=== PATIENT | female | born 1950 | race Caucasian/White ===

== ENCOUNTER → 2019-12-26 | Outpatient (CLI) | payer BC ==
[2019-12-26 10:26] LABS: Basophils % (A) 1 %; Eosinophils # (A) 0.1 k/uL (0-0.7); Eosinophils % (A) 2 %; HCT 43.6 % (34.0-46.0); HGB 13.7 gm/dL (11.4-16.0); Lymphocytes # (A) 1.2 k/uL (1.0-4.8); Lymphocytes % (A) 28 %; MCH 28.9 pg (25.0-35.0); MCHC 31.5 g/dL (31.0-37.0); MCV 91.9 fL (80.0-100.0); Mean Platelet Volume 8.8; Monocytes # (A) 0.2 k/uL (0-1.0); Monocytes % (A) 6 %; Neutrophils # (A) 2.6 k/uL (1.3-7.7); Neutrophils % (A) 62 %; Platelet Count 179 k/uL (150-450); RBC 4.75 m/uL (3.80-5.40); RDW 13.5 % (11.5-15.5); WBC 4.2 k/uL (3.8-10.6)
[2019-12-26 10:49] LABS: Potassium 4.9 mmol/L (3.5-5.1)
[2019-12-26 12:04] LABS: INR 0.9 (<1.2); Prothrombin Time 9.5 sec (9.0-12.0)
== END | disposition home or self-care (01) ==
LOC: LABPAT 08:52
PROVIDERS: ATTEND Orthopaedic Surgery
DX: Z01.818 Encounter for other preprocedural examination (principal); Z01.812 Encounter for preprocedural laboratory examination; M17.11 Unilateral primary osteoarthritis, right knee
CPT/HCPCS: 36415; 80051; 85025; 85610; 87070; 93005

== ENCOUNTER 2020-01-16 08:19 | Day surgery (SDC) | payer BC ==
--- NOTE | 2020-01-15 13:23 | HP ---
HISTORY AND PHYSICAL REASON FOR ADMISSION: Surgery 01/16/2020 HISTORY OF PRESENT ILLNESS: Ghazal Kuar is a 69-year-old patient seen with progressive right knee pain. We discussed options for treatment. She elected to proceed with right total knee arthroplasty. Consent regarding procedure was obtained. PAST MEDICAL HISTORY: Noncontributory. SURGICAL HISTORY: Right knee arthroscopy. MEDICATIONS: Vitamins. ALLERGIES: None. SOCIAL HISTORY: She denies tobacco use. PHYSICAL EXAMINATION: Evaluation of the right knee. Her range of motion is -2 to 130. Tenderness medial joint line. Crepitus medial patellofemoral compartments. Pain with patellofemoral compression. Ligaments stable. Hip rotation without pain. Distal neurovascular exam is intact. RADIOGRAPHS: Radiographs reveal severe osteoarthritic changes. IMPRESSION: Right knee osteoarthritis. PLAN: Right total knee arthroplasty. MMODL / IJN: [id number] /
[~2020-01-16 08:19] MED LIST: ACETAMINOPHEN TAB 500 MG TAB PO ONE; DEXAMETHASONE SOD PHOSPHATE 10 MG/ML 1 ML VIAL IV ONE; HYDROmorphone 0.5 MG/0.5 ML SYRINGE IVP PRN; MELOXICAM 7.5 MG TAB PO ONE; MIDAZOLAM 2 MG/2 ML VIAL IV PRN; ONDANSETRON 4 MG/2 ML VIAL IVP ONE; ROPIVACAINE 246.25 MG, EPINEPHrine 0.5 MG, KETOROLAC 30 MG, cloNIDine HCL/PF 80 MCG, WA... MISCELLANE ONE; TRANEXAMIC ACID 1,000 MG in SODIUM CHLORIDE 0.9% 100 ML IVPB ONE
[2020-01-16] MEDS ORDERED: ONDANSETRON 4 MG/2 ML VIAL ONE (09:02)
[2020-01-16] MEDS ORDERED: ACETAMINOPHEN TAB 500 MG TAB ONE (09:02)
[2020-01-16] MEDS ORDERED: LIDOCAINE 1% (10MG/ML) FOR IV START INTRADERMA ONE (09:05)
[2020-01-16] MEDS: LACTATED RINGERS 1,000 ML IV SCH ×3 (09:09→20:33)
[2020-01-16] MEDS ORDERED: MIDAZOLAM 2 MG/2 ML VIAL IV ONE (09:26)
[2020-01-16] MEDS ORDERED: fentaNYL (PF) 50 MCG/ML 2 ML AMP IV ONE (09:26)
[2020-01-16] MEDS ORDERED: MIDAZOLAM 2 MG/2 ML VIAL ONE (09:50)
[2020-01-16] MEDS ORDERED: fentaNYL (PF) 50 MCG/ML 2 ML AMP ONE (09:50)
[2020-01-16] MEDS ORDERED: diphenhydrAMINE 50 MG/ML 1 ML VIAL ONE (09:50)
[2020-01-16] MEDS ORDERED: TRANEXAMIC ACID 1,000 MG/10 ML VIAL ONE (09:50)
[2020-01-16] MEDS ORDERED: PROPOFOL 10 MG/ML 20 ML VIAL IV ONE (09:50)
[2020-01-16] MEDS ORDERED: SODIUM CHLORIDE 0.9% 100 ML BAG ONE (09:50)
[2020-01-16] MEDS ORDERED: LACTATED RINGERS 1,000 ML IV ONE (10:30)
[2020-01-16] MEDS ORDERED: HYDROmorphone 0.5 MG/0.5 ML SYRINGE IVP PRN ×3 (11:44)
[2020-01-16] MEDS ORDERED: NALOXONE 0.4 MG/ML 1 ML VIAL IV PRN (11:44)
[2020-01-16] MEDS ORDERED: HYDROcodone/APAP 5-325MG 1 EACH TAB PO PRN (11:44)
[2020-01-16] MEDS ORDERED: hydrOXYzine pamoate 25 MG CAP PO PRN (11:44)
[2020-01-16] MEDS ORDERED: ONDANSETRON 4 MG/2 ML VIAL IVP PRN (11:44)
--- NOTE | 2020-01-16 11:44 | P.OP ---
Date of Procedure: 01/16/20 Preoperative Diagnosis: Right knee osteoarthritis Postoperative Diagnosis: Right knee osteoarthritis Procedure(s) Performed: Right total knee arthroplasty Implants: 1. Aesculap size 4 right narrow cemented femur 2. Aesculap size 2+ cemented tibial baseplate 3. Aesculap size T2/2+12 mm polyethylene tibial insert 4. Aesculap 3 all polyethylene cemented 3 peg patella Anesthesia: regional (Adductor canal catheter), local, spinal Surgeon: Italo Kim African Studies Professor #1: Maldonado Garcia Estimated Blood Loss (ml): 30 Pathology: other (Bone) Condition: stable Disposition: PACU Indications for Procedure: 69-year-old patient seen with symptomatic right knee osteoarthritis. After treatment options discussed, she elected to proceed with total knee arthroplasty. Operative Findings: see description of procedure Description of Procedure: Patient was taken to the operative suite after having an adductor canal catheter placed by the department of anesthesia. Patient underwent a spinal anesthetic by the department of anesthesia. Patient was given preoperative IV intake antibiotics and TXA. A well-padded tourniquet was placed about the right lower extremity. The lower extremity was then prepped and draped in the normal sterile orthopedic fashion. The extremity was elevated, a tourniquet was insufflated to 300. A standard anterior incision was made sharply through skin. Dissection was taken down through the subcutaneous soft tissues down to the extensor mechanism. A medial arthrotomy was performed, patella was everted and knee was flexed. There was advanced osteoarthritis noted. I introduced my distal intramedullary femoral drill. I then introduced the distal femoral cutting jig. Emanuel DIETZ secured the cutting jig with 2 pins. I held retractors in position while Emanuel DIETZ performed the distal femoral resection through the guide area we now removed her distal femoral cutting guide. We now placed our 4-in-1 femoral cutting block and positioned and it was secured with 2 pins by Emanuel DIETZ while I held the block in position. The distal femoral finishing was now completed. A proximal tibial cutting guide was positioned. I held the guide in the appropriate position with both hands well Emanuel DIETZ inserted stabilizing pins into the guide. Proximal tibial cut was made. We now placed a trial femoral component into position, along with an appropriate size tibial tray and insert. We now took the knee through range of motion and had full extension good flexion and good overall soft tissue balance noted. The patella was everted and stabilized with 2 towel clips held by Emanuel DIETZ while I performed a flush with patellar quad tendon utilizing a fresh sawblade. We templated the patella, appropriate drill holes were made. An appropriate trial patella was positioned, knee was taken through full range of motion with the patella tracking very nicely. The trial patella was removed. Drill holes were made through the femoral component. All trial components were removed after marking off the appropriate rotation of the tibia. Retractors were now positioned along the proximal tibia. An appropriate keel punch was made with the appropriate size tibial guide by myself on Emanuel DIETZ assisted by holding retractors. At this point appropriate size nickel free implants were chosen and opened as the patient has a history of nickel ALLERGY. The joint was irrigated copiously with pulse lavage mechanical irrigation. The posterior capsule was infiltrated with local analgesic. The wound was irrigated with p ulse lavage mechanical irrigation. We mixed antibiotic methylmethacrylate. We placed the knee into flexion. We placed multiple retractors assisted by Emanuel DIETZ to expose the proximal tibia. Once the methyl methacrylate was ready, the tibial component was cemented into place removing any excess methylmethacrylate form by both myself and Emanuel DIETZ. The femoral component was cemented into place removing the removing any excess methylmethacrylate performed by both myself and Emanuel DIETZ. We then inserted the appropriate size polyethylene tibial insert. We made sure that it was locked into position. We took the knee into full extension, and then back in a flexion making sure we had removed any excess methylmethacrylate. The patellar component was then cemented down and secured with clamp. Excess methylmethacrylate removed. We kept the knee in full extension, patellar clamp in position until methylmethacrylate had hardened. Once it had hardened the patellar clamp was removed. The knee was taken through full range of motion. The patella tracked nicely. There was good soft tissue balancing. The tourniquet was now released. Additional hemostasis was achieved via electrocautery. A second gram of TXA was given. The wound again was irrigated with pulse lavage mechanical irrigation. The superficial soft tissues were infiltrated local analgesic. The extensor mechanism was repaired with Vicryl. We checked the repair with range of motion and it was stable. The subcutaneous soft tissues were repaired with Vicryl in layers. The skin was approximated with pernio/Dermabond. Sterile dressings were applied followed by loose web roll and Edson bandage. The patient was transferred to a bed, and taken to recovery in stable and satisfactory condition. Emanuel DIETZ assisted with this complex procedure.
[2020-01-16] MEDS ORDERED: ROPIVACAINE 0.2%-NS ON-Q PUMP 1,090 MG, EMPTY PAIN BALL 1 EACH MISCELLANE PRN (12:01)
--- NOTE | 2020-01-16 12:12 | P.ANPRN ---
Procedure Note - Anesthesia - Nerve Block Performed Right Adductor Canal Infusion Time Out Performed: Yes (925) Date of Procedure: 01/16/20 Procedure Start Time: Procedure Stop Time: Location of Patient: PreOp Indication: Acute Post-Operative Pain, Requested by Surgeon Specifically requested for management of pain by DrIvone: Italo Kim Sedation Type: Sedate with meaningful contact maintained Preparation: Sterile Prep Position: Supine Catheter: Indwelling Needle Types: Pajunk Needle Gauge: 18 Ultrasound used to visualize needle placement: Yes Ultrasound used to observe medication spread: Yes Injectate: 0.5% Ropivacaine (see comment for volume) (30cc) Blood Aspirated: No Pain Paresthesia on Injection Noted: No Resistance on Injection: Normal Image Stored and Saved: Yes Events: Uneventful and Well Tolerated
--- NOTE | 2020-01-16 12:42 | XR ---
EXAMINATION TYPE: XR knee limited RT DATE OF EXAM: 01/16/2020 COMPARISON: NONE HISTORY: 69-year-old female evaluation for postoperative abnormality in alignment TECHNIQUE: 2 views FINDINGS: Images show placement of right total knee arthroplasty. Both distal femoral and proximal tibial compo nents of prosthesis are well seated without periprosthetic fracture. Alignment grossly anatomic. Ante rior soft tissue swelling with scattered soft tissue air as well as intra-articular air compatible wi th recent operation. IMPRESSION: Uncomplicated postoperative appearance right total knee arthroplasty.
[2020-01-16] MEDS ORDERED: diphenhydrAMINE 50 MG/ML 1 ML VIAL IVP STA (15:26)
[2020-01-16] MEDS: HYDROcodone/APAP 5-325MG 1 EACH TAB PO PRN (16:48)
[2020-01-16] MEDS ORDERED: SENNOSIDES-DOCUSATE SODIUM 1 EACH TAB PO SCH (21:00)
[2020-01-17 02:25] VITALS: RESP 16
[2020-01-17] MEDS: HYDROcodone/APAP 5-325MG 1 EACH TAB PO PRN (03:21)
[2020-01-17] MEDS: LACTATED RINGERS 1,000 ML IV SCH ×2 (05:38→09:30)
[2020-01-17 07:24] VITALS: BP 118/74; PULSE 75; TEMP 98.2
[2020-01-17 08:02] LABS: Basophils % (A) 0 %; Eosinophils # (A) 0.1 k/uL (0-0.7); Eosinophils % (A) 1 %; HCT 37.4 % (34.0-46.0); HGB 11.6 gm/dL (11.4-16.0); Lymphocytes # (A) 1.3 k/uL (1.0-4.8); Lymphocytes % (A) 16 %; MCH 28.7 pg (25.0-35.0); MCV 92.8 fL (80.0-100.0); Monocytes # (A) 0.3 k/uL (0-1.0); Monocytes % (A) 4 %; Neutrophils # (A) 6.3 k/uL (1.3-7.7); Neutrophils % (A) 79 %; Platelet Count 150 k/uL (150-450); RBC 4.02 m/uL (3.80-5.40); RDW 13.3 % (11.5-15.5)
[2020-01-17] MEDS ORDERED: ENOXAPARIN 30 MG/0.3 ML SYRINGE SQ SCH (09:00)
[2020-01-17] MEDS ORDERED: diphenhydrAMINE 25 MG CAP PO PRN (09:28)
--- NOTE | 2020-01-17 13:10 | P.PN ---
Subjective Progress Note Date: 01/17/20 Principal diagnosis: Status post right total knee arthroplasty Patient evaluated bedside, she is resting comfortably. She's done well with therapy. Her pain is well-controlled. She denies any chest pain or shortness of breath. Objective - Vital Signs Vital signs: Vital Signs Temp 98.2 F 01/17/20 06:51 Pulse 75 01/17/20 06:51 Resp 16 01/17/20 07:45 BP 118/74 01/17/20 06:51 Pulse Ox 98 01/17/20 06:51 Intake & Output 01/16/20 01/17/20 01/17/20 18:59 06:59 18:59 Intake Total 1550 360 Output Total 30 Balance 1520 360 Weight 75.7 kg Intake: IV 1550 Oral 360 Output: Estimated Blood Loss 30 Other: Voiding Method Incontinent Toilet Toilet # Voids 1 - Exam Right lower extremity: Incision is clean, dry, and intact. The foam dressing is in good condition. There is minimal soft tissue swelling and ecchymosis surrounding the medial and lateral aspects of the incision. Calf is soft, no tenderness with palpation. Plantar flexion, dorsiflexion, EHL, FHL are intact. Sensory exam to light touch throughout the extremity is intact, dorsal pedis pulses 2+. - Labs CBC & Chem 7: 01/17/20 07:22 Assessment and Plan Assessment: Status post right total knee arthroplasty Plan: Pain control, plan for discharge home on [place] [facility] and DVT prophylaxis, Eliquis 2.5mg bid Wound care instructions discussed/elevating icing techniques discussed Home therapy and nursing after discharge Encourage incentive spirometer Medical recommendations Plan for discharge home today Time with Patient: Less than 30
--- NOTE | 2020-01-17 13:12 | P.DS ---
Providers Date of admission: 01/16/2020 Expected date of discharge: 01/17/20 Attending physician: Italo Kim Consults: 01/16/20 11:44 Consult Physician Routine Consulting Provider: Jose Manuel Morris Reason/Comments: Medical management Do you want consulting provider notified?: Yes Primary care physician: Umm Dutta [place] Hospital Course: Date of admission: 01/16/2020 Date of discharge: 01/17/2020 Admission diagnosis: Status post right total knee arthroplasty Attending physician: Same Surgical procedures: Right total knee arthroplasty Brief history: Patient is a [id number] with a history of progressive primary right knee osteoarthritis. At this point patient has failed conservative treatment measures and has opted to proceed with a elective right total knee arthroplasty. Hospital course: Details of patient's surgery can be found in operative report. Patient tolerated the procedure well and was subsequently transported to orthopedic floor. Patient's orthopeidc and medical care was provided daily. Patient had daily laboratory tests performed for evaluation of overall blood counts Patient had daily physical therapy to include strengthening range of motion as well as education with walker ambulation. Patient was treated with Lovenox for their postoperative DVT prophylaxis during their inpatient stay. Patient was noted to have a relatively uneventful postoperative course. Patient reported satisfactory pain control with oral pain medications by postoperative day 0. Patient showed satisfactory progress with physical therapy. Patient moved steadily through the program and had no difficulty meeting the goals by postoperative day 1. Given patient's otherwise satisfactory course and having met physical therapy goals, plan is to discharge patient home on postoperative day 1. Discharge condition/disposition: Patient will be discharged home in stable condition. Discharge medications: Instructions are given on resumption of patient's normal daily medications per primary care recommendation, in addition patient will be prescribed Elmer 5 mg/325 mg, Colace 100 mg, Eliquis 2.5mg. Discharge instructions: 1. Wound care and infection precautions, keep incision dry and covered while showering, no lotions, creams, moisturizers. No soaking, tubs, pools, hottubs. Do not scrub over the incision. 2. Weight-bear as tolerated with walker / cane until follow-up. 3. Ice and elevate when necessary. Do not exceed 20 minutes per hour with ice pack. 4. Utilize compression sleeve until seen at first follow up appointment. 5. Visiting nursing care. 6. Home physical therapy including home CPM. 7. Pain meds and anticoagulants per prescription. 8. Pain medication has potential to cause constipation. Increase oral fluid and fiber intake. Contact primary care provider if you have not had a bowel movement within 48 hours after discharge 9. No anti-inflammatory medication until discussed at first post operative visit, this including Motrin, Aleve, Mobic, Diclofenac 10. Follow up in office at 2 weeks postop with Emanuel Garcia PA-C 11. Follow up with your primary care doctor 7-10 days after discharge. 12. Contact [facility] with any questions, . Procedures: Right total knee arthroplasty Plan - Discharge Summary Discharge Rx Participant: No New Discharge Prescriptions: New Docusate [Colace] 100 mg PO DAILY #30 capsule Apixaban [Eliquis] 2.5 mg PO BID #60 tab Hydrocodone/Acetaminophen [Elmer 5-325] 1 - 2 each PO Q6HR PRN #56 tab PRN Reason: Pain No Action diphenhydrAMINE [Benadryl] 25 mg PO HS PRN PRN Reason: Insomnia Multivitamins, Thera [Multivitamin (formulary)] 1 tab PO DAILY Magnesium Oxide [Mag-Oxide] 1 tab PO DAILY Cholecalciferol [Vitamin D3 (25 Mcg = 1000 Iu)] 1 tab PO DAILY Ascorbic Acid [Vitamin C] 1 tab PO DAILY Acetylcysteine [Nac] 1 tab PO DAILY Acetaminophen [Tylenol] 325 - 650 mg PO Q6H PRN PRN Reason: Pain Discharge Medication List Acetaminophen [Tylenol] 325 - 650 mg PO Q6H PRN 01/10/20 [History] Acetylcysteine [Nac] 1 tab PO DAILY 01/10/20 [History] Ascorbic Acid [Vitamin C] 1 tab PO DAILY 01/10/20 [History] Cholecalciferol [Vitamin D3 (25 Mcg = 1000 Iu)] 1 tab PO DAILY 01/10/20 [History] Magnesium Oxide [Mag-Oxide] 1 tab PO DAILY 01/10/20 [History] Multivitamins, Thera [Multivitamin (formulary)] 1 tab PO DAILY 01/10/20 [History] diphenhydrAMINE [Benadryl] 25 mg PO HS PRN 01/10/20 [History] Apixaban [Eliquis] 2.5 mg PO BID #60 tab 01/17/20 [Rx] Docusate [Colace] 100 mg PO DAILY #30 capsule 01/17/20 [Rx] Hydrocodone/Acetaminophen [Elmer 5-325] 1 - 2 each PO Q6HR PRN #56 tab 01/17/20 [Rx] Follow up Appointment(s)/Referral(s): [facility], [NON-STAFF] - Maldonado Garcia PAC [PHYSICIAN UTILITY HAND] - 02/03/20 3:10 pm Umm Dutta MD [Primary Care Provider] - 01/23/20 3:30 pm Activity/Diet/Wound Care/Special Instructions: Orthopedic Discharge Instructions: 1. Wound care and infection precautions, keep incision dry and covered while showering, no lotions, creams, moisturizers. No soaking, pools, hot tubs. Do not scrub over incision. 2. Weight-bear as tolerated with walker / cane until follow-up. 3. Ice and elevate when necessary. Do not exceed 20 minutes per hour with ice pack. 4. Utilize compression sleeve until seen at first follow up appointment. 5. Pain meds and anticoagulants per prescription. 6. Pain medication has potential to cause constipation. Increase oral fluid and fiber intake. Contact primary care provider if you have not had a bowel movement within 48 hours after discharge. 7. No anti-inflammatory medication until discussed at first post operative visit, this including Motrin, Aleve, Mobic, Diclofenac. 8. Follow up in office at 2 weeks postop with Emanuel Garcia PA-C 9. Follow up with your primary care doctor 7-10 days after discharge. 10. Contact [facility] with any questions, . Okay to remove silver dressing on 01/25/2020 Discharge Disposition: HOME WITH HOME HEALTH SERVICES
--- NOTE | 2020-01-17 13:31 | P.PN ---
Progress Note - Text 01/17/20 702am 69-year-old female status post total knee replacement by Dr. Kim. Patient has an On-Q pump for postop pain control with the solution running at 8 mL an hour with a VAS of 3. Plan to continue On-Q pump infusion
== END 2020-01-17 13:57 | disposition home health service (06) ==
LOC: OR 08:19 → 4SSUR 11:37 → OR 01-17 13:57
PROVIDERS: ATTEND Orthopaedic Surgery
DX: M17.11 Unilateral primary osteoarthritis, right knee (principal); K21.9 Gastro-esophageal reflux disease without esophagitis; Z88.6 Allergy status to analgesic agent; Z91.09 Other allergy status, other than to drugs and biological substances; Z79.899 Other long term (current) drug therapy
CPT/HCPCS: 97110; 97161; 64448; 76942; 85025; 88300; 73560; 27447; C1776; C1713; J2250; J0171; J1200; J1100; J0690 ×2; J2405; J3010; J1885; J1650; J2795 ×2; J0735

== ENCOUNTER → 2020-05-08 | Outpatient (CLI) | payer BC ==
[2020-05-08 14:57] LABS: Basophils % (A) 1 %; Eosinophils # (A) 0.1 k/uL (0-0.7); Eosinophils % (A) 1 %; HCT 42.3 % (34.0-46.0); HGB 14.3 gm/dL (11.4-16.0); Lymphocytes # (A) 1.1 k/uL (1.0-4.8); Lymphocytes % (A) 19 %; MCH 30.1 pg (25.0-35.0); MCHC 33.8 g/dL (31.0-37.0); Mean Platelet Volume 8.5; Monocytes # (A) 0.2 k/uL (0-1.0); Monocytes % (A) 4 %; Neutrophils # (A) 4.5 k/uL (1.3-7.7); Neutrophils % (A) 74 %; Platelet Count 174 k/uL (150-450); RBC 4.76 m/uL (3.80-5.40); RDW 13.9 % (11.5-15.5)
[2020-05-08 15:05] LABS: INR 0.9 (<1.2); Prothrombin Time 9.8 sec (9.0-12.0)
[2020-05-08 15:08] LABS: Potassium 4.6 mmol/L (3.5-5.1)
== END | disposition home or self-care (01) ==
LOC: LABPAT 13:34
PROVIDERS: ATTEND Orthopaedic Surgery
DX: Z01.812 Encounter for preprocedural laboratory examination (principal); M17.12 Unilateral primary osteoarthritis, left knee
CPT/HCPCS: 36415; 80051; 85025; 85610; 87070

== ENCOUNTER 2020-05-21 10:48 | Day surgery (SDC) | payer BC ==
[2020-05-16 11:57] VITALS: BMI 29.4
--- NOTE | 2020-05-20 10:58 | HP ---
HISTORY AND PHYSICAL REASON FOR ADMISSION: Surgery 05/21/2020. HISTORY OF PRESENT ILLNESS: Ghazal Kaur is a 69-year-old patient seen with symptomatic left knee osteoarthritis. After options were discussed with her, she elected to proceed with left total knee arthroplasty. Consent was obtained. PAST MEDICAL HISTORY: Noncontributory. PAST SURGICAL HISTORY: Right knee arthroscopy, right total knee arthroplasty. DAILY MEDICATIONS: Vitamins. ALLERGIES: NICKEL and NSAIDs. SOCIAL HISTORY: She denies current tobacco use. PHYSICAL EXAMINATION: Evaluation of the left knee: Range of motion is -2 to 125. Tenderness along the medial joint line. Crepitus medial patellofemoral compartments with range of motion. Painless rotation of the hip. Straight leg raise negative. Distal neurovascular exam intact. RADIOGRAPHS: Left knee radiographs reveal severe osteoarthritic changes. IMPRESSION: 1. Left knee osteoarthritis. 2. NICKEL ALLERGY. 3. NSAID ALLERGY. PLAN: Left total knee arthroplasty. Surgery 05/21/2020. MMODL / IJN: [id number] /
[~2020-05-21 10:48] MED LIST changes: -ACETAMINOPHEN TAB 500 MG TAB PO ONE; +ACETAMINOPHEN TAB 500 MG TAB PO PRN; -DEXAMETHASONE SOD PHOSPHATE 10 MG/ML 1 ML VIAL IV ONE; +DEXAMETHASONE SOD PHOSPHATE 4 MG/ML 1 ML VIAL IV ONE; -HYDROmorphone 0.5 MG/0.5 ML SYRINGE IVP PRN; +LACTATED RINGERS 1,000 ML IV SCH; -MELOXICAM 7.5 MG TAB PO ONE; -ROPIVACAINE 246.25 MG, EPINEPHrine 0.5 MG, KETOROLAC 30 MG, cloNIDine HCL/PF 80 MCG, WA... MISCELLANE ONE; -TRANEXAMIC ACID 1,000 MG in SODIUM CHLORIDE 0.9% 100 ML IVPB ONE; +TRANEXAMIC ACID 1,000 MG in SODIUM CHLORIDE 0.9% 100 ML IVPB PRN
[2020-05-21] MEDS ORDERED: LIDOCAINE 1% (10MG/ML) FOR IV START SQ ONE (11:19)
[2020-05-21] MEDS ORDERED: MIDAZOLAM 2 MG/2 ML VIAL IV ONE (11:32)
[2020-05-21] MEDS ORDERED: fentaNYL (PF) 50 MCG/ML 2 ML AMP ONE (12:39)
[2020-05-21] MEDS ORDERED: SODIUM CHLORIDE 0.9% 100 ML BAG ONE (12:39)
[2020-05-21] MEDS ORDERED: MIDAZOLAM 2 MG/2 ML VIAL ONE (12:39)
[2020-05-21] MEDS ORDERED: PROPOFOL 10 MG/ML 20 ML VIAL IV ONE (12:39)
[2020-05-21] MEDS ORDERED: TRANEXAMIC ACID 1,000 MG/10 ML VIAL ONE (12:39)
[2020-05-21] MEDS ORDERED: ceFAZolin 1,000 MG in SODIUM CHLORIDE 0.9% 1,000 ML IRRIGATION ONE (13:04)
[2020-05-21] MEDS ORDERED: LACTATED RINGERS 1,000 ML IV ONE (13:44)
[2020-05-21] MEDS ORDERED: HYDROcodone/APAP 5-325MG 1 EACH TAB PO PRN (14:15)
[2020-05-21] MEDS ORDERED: HYDROmorphone 0.2 MG/1 ML SYRINGE IVP PRN (14:15)
[2020-05-21] MEDS ORDERED: HYDROmorphone 0.5 MG/0.5 ML SYRINGE IVP PRN (14:15)
[2020-05-21] MEDS ORDERED: ONDANSETRON 4 MG/2 ML VIAL IVP PRN (14:15)
[2020-05-21] MEDS ORDERED: NALOXONE 0.4 MG/ML 1 ML VIAL IV PRN (14:15)
--- NOTE | 2020-05-21 14:15 | P.OP ---
Date of Procedure: 05/21/20 Preoperative Diagnosis: Left knee osteoarthritis Postoperative Diagnosis: Left knee osteoarthritis Procedure(s) Performed: Left total knee arthroplasty Implants: 1. Aesculap size 4 narrow left cemented femur 2. Aesculap size T2 cemented tibial baseplate 3. Aesculap T2/T +12 mm polyethylene tibial insert 4. Aesculap T3 all polyethylene cemented patella Anesthesia: regional, spinal Surgeon: Italo Kim Risk Management Professional #1: Maldonado Garcia Estimated Blood Loss (ml): 50 Pathology: other (Bone) Condition: stable Disposition: PACU Indications for Procedure: 69-year-old patient seen with septic left knee osteoarthritis. After treatment options were discussed with her, she elected to proceed with total knee arthroplasty. She has a nickel ALLERGY and therefore we will use nickel free components. Operative Findings: see description of procedure Description of Procedure: Patient was taken to the operative suite after having an adductor canal catheter placed by the department of anesthesia for postoperative pain management. Patient underwent a spinal anesthetic by the department of anesthesia. Patient was given preoperative IV intake antibiotics and TXA. A well-padded tourniquet was placed about the left lower extremity. The lower extremity was then prepped and draped in the normal sterile orthopedic fashion. The extremity was elevated, a tourniquet was insufflated to 300. A standard anterior incision was made sharply through skin. Dissection was taken down through the subcutaneous soft tissues down to the extensor mechanism. A medial arthrotomy was performed, patella was everted and knee was flexed. There was advanced osteoarthritis noted. I introduced my distal intramedullary femoral drill. I then introduced the distal femoral cutting jig. Emanuel DIETZ secured the cutting jig with 2 pins. I held retractors in position while Emanuel DIETZ performed the distal femoral resection through the guide area we now removed her distal femoral cutting guide. We now placed our 4-in-1 femoral cutting block and positioned and it was secured with 2 pins by Emanuel DIETZ while I held the block in position. The distal femoral finishing was now completed. A proximal tibial cutting guide was positioned. I held the guide in the appropriate position with both hands well Emanuel DIETZ inserted stabilizing pins into the guide. Proximal tibial cut was made. We now placed a trial femoral component into position, along with an appropriate size tibial tray and insert. We now took the knee through range of motion and had full extension good flexion and good overall soft tissue balance noted. The patella was everted and stabilized with 2 towel clips held by Emanuel DIETZ while I performed a flush with patellar quad tendon utilizing a fresh sawblade. We templated the patella, appropriate drill holes were made. An appropriate trial patella was positioned, knee was taken through full range of motion with the patella tracking very nicely. The trial patella was removed. Drill holes were made through the femoral component. All trial components were removed after marking off the appropriate rotation of the tibia. Retractors were now positioned along the proximal tibia. An appropriate keel punch was made with the appropriate size tibial guide by myself on Emanuel DIETZ assisted by holding retractors. At this point appropriate size implants were chosen and opened. The joint was irrigated copiously with pulse lavage mechanical irrigation. The posterior capsule was infiltrated with local analgesic. The wound was irrigated with pulse lavage mechanical irrigation. We mixed antibiotic methylmethacrylate. We placed the knee into flexion. We placed multiple retractors assisted by Emanuel DIETZ to expose the proximal tibia. Once the methyl methacrylate was ready, the tibial component was cemented into place removing any excess methylmethacrylate form by both myself and Emanuel DIETZ. The femoral component was cemented into place removing the removing any excess methylmethacrylate performed by both myself and Emanuel DIETZ. We then inserted the appropriate size polyethylene tibial insert. We made sure that it was locked into position. We took the knee into full extension, and then back in a flexion making sure we had removed any excess methylmethacrylate. The patellar component was then cemented down and secured with clamp. Excess methylmethacrylate removed. We kept the knee in full extension, patellar clamp in position until methylmethacrylate had hardened. Once it had hardened the patellar clamp was removed. The knee was taken through full range of motion. The patella tracked nicely. There was good soft tissue balancing. The tourniquet was now released. Additional hemostasis was achieved via electrocautery. A second gram of TXA was given. The wound again was irrigated with pulse lavage mechanical irrigation. The superficial soft tissues were infiltrated local analgesic. The extensor mechanism was repaired with Vicryl. We checked the repair with range of motion and it was stable. The subcutaneous soft tissues were repaired with Vicryl in layers. The skin was approximated with pernio/Dermabond. Sterile dressings were applied followed by loose web roll and Edson bandage. The patient was transferred to a bed, and taken to recovery in stable and satisfactory condition. Emanuel DIETZ assisted with this complex procedure.
[2020-05-21] MEDS ORDERED: ROPIVACAINE 0.2%-NS ON-Q PUMP 1,090 MG, EMPTY PAIN BALL 1 EACH MISCELLANE PRN (14:33)
--- NOTE | 2020-05-21 15:06 | XR ---
Limited left knee HISTORY: Status post left knee arthroplasty Frontal and lateral views of the left knee There is lucency in the soft tissues, patient is status post left knee arthroplasty. There is anatomi c alignment. Surgical staple present within the soft tissues anteriorly at the level of the distal th igh. IMPRESSION: Orthopedic follow-up, surgical staple as described.
[2020-05-21] MEDS: HYDROmorphone 0.5 MG/0.5 ML SYRINGE IVP PRN ×4 (16:35→18:35)
[2020-05-21] MEDS ORDERED: diphenhydrAMINE 50 MG/ML 1 ML VIAL IVP ONE (17:04)
[2020-05-21] MEDS ORDERED: diphenhydrAMINE 25 MG CAP PO PRN (19:49)
[2020-05-21] MEDS: SENNOSIDES-DOCUSATE SODIUM 1 EACH TAB PO SCH (22:08)
[2020-05-21] MEDS: HYDROcodone/APAP 5-325MG 1 EACH TAB PO PRN (22:08)
[2020-05-21] MEDS: LACTATED RINGERS 1,000 ML IV SCH (22:17)
[2020-05-22] MEDS: LACTATED RINGERS 1,000 ML IV SCH ×3 (02:05→23:06)
[2020-05-22] MEDS: HYDROmorphone 0.5 MG/0.5 ML SYRINGE IVP PRN ×4 (02:53→22:58)
[2020-05-22] MEDS: HYDROcodone/APAP 5-325MG 1 EACH TAB PO PRN ×3 (05:12→21:25)
[2020-05-22] MEDS: ENOXAPARIN 30 MG/0.3 ML SYRINGE SQ SCH ×2 (07:49→21:05)
[2020-05-22 09:01] LABS: Basophils % (A) 0 %; Eosinophils # (A) 0.1 k/uL (0-0.7); Eosinophils % (A) 1 %; HCT 38.4 % (34.0-46.0); HGB 12.3 gm/dL (11.4-16.0); Lymphocytes # (A) 0.9 k/uL (1.0-4.8); Lymphocytes % (A) 10 %; MCH 28.5 pg (25.0-35.0); MCV 88.9 fL (80.0-100.0); Mean Platelet Volume 8.5; Monocytes # (A) 0.4 k/uL (0-1.0); Monocytes % (A) 5 %; Neutrophils # (A) 7.2 k/uL (1.3-7.7); Neutrophils % (A) 84 %; Platelet Count 199 k/uL (150-450); RBC 4.32 m/uL (3.80-5.40); RDW 14.3 % (11.5-15.5); WBC 8.5 k/uL (3.8-10.6)
--- NOTE | 2020-05-22 10:11 | P.ANPRN ---
Procedure Note - Anesthesia - Nerve Block Performed Left Adductor Canal Infusion Time Out Performed: Yes Date of Procedure: 05/21/20 Procedure Start Time: : Procedure Stop Time: :42 Location of Patient: PreOp Indication: Acute Post-Operative Pain, Requested by Surgeon Sedation Type: Sedate with meaningful contact maintained Preparation: Sterile Prep, Sterile Dressing Position: Supine Catheter: Indwelling Needle Types: Pajunk Needle Gauge: 21 Ultrasound used to visualize needle placement: Yes Ultrasound used to observe medication spread: Yes Blood Aspirated: No Pain Paresthesia on Injection Noted: No Resistance on Injection: Normal Image Stored and Saved: Yes Events: Uneventful and Well Tolerated (ropi .5% 20cc plus dexamethasone 4mg)
[2020-05-22] MEDS ORDERED: traMADol 50 MG TAB PO PRN (13:52)
[2020-05-22] MEDS ORDERED: HYDROcodone/APAP 7.5-325MG 1 EACH TAB PO PRN (13:52)
--- NOTE | 2020-05-22 13:56 | P.PN ---
Subjective Progress Note Date: 05/22/20 Principal diagnosis: Status post left total knee arthroplasty patient is evaluated at bedside today, she is resting. She has had increasing pain throughout most the day today. She notes most of the pain in the posterior aspect of the knee. She states the anterior aspect the knee is feeling better with use of the On-Q ball. She has no headaches, lightheadedness, chest pain, shortness of breath, nausea vomiting. Objective - Vital Signs Vital signs: Vital Signs Temp 98.5 F 05/22/20 08:00 Pulse 85 05/22/20 08:00 Resp 18 05/22/20 08:00 BP 116/76 05/22/20 08:00 Pulse Ox 96 05/22/20 08:00 Intake & Output 05/21/20 05/22/20 05/22/20 18:59 06:59 18:59 Intake Total 1451 300 Output Total 50 1 Balance 1401 299 Weight 78.1 kg 78.1 kg Intake: IV 1451 300 Output: Urine 1 Estimated Blood Loss 50 Other: Voiding Method Toilet # Voids 1 - Exam Left lower extremity: Incision is clean, dry, and intact. The foam dressing is in good condition. There is minimal soft tissue swelling and ecchymosis surrounding the medial and lateral aspects of the incision. Calf is soft, no tenderness with palpation. Plantar flexion, dorsiflexion, EHL, FHL are intact. Sensory exam to light touch throughout the extremity is intact, dorsal pedis pulses 2+. - Labs CBC & Chem 7: 05/22/20 08:24 Labs: Abnormal Lab Results - Last 24 Hours (Table) 05/22/20 Range/Units 08:24 Lymphocytes # 0.9 L (1.0-4.8) k/uL Assessment and Plan Assessment: Status post left total knee arthroplasty Plan: Pain control, will add tramadol 50 mg every 6 hours when necessary, also added one [place] 7.5 mg/325 mg DVT prophylaxis, continue current medication Wound care instructions were discussed, icing and elevating techniques discussed Discussed activity level, she needs to be out of bed for all meals. She needs to be utilizing a walker every half hour to hour. Medical recommendations Plan for 1 additional night stay, plan for discharge home on 05/23/2020 Time with Patient: Less than 30
--- NOTE | 2020-05-22 20:38 | P.CONS ---
History of Present Illness - Reason for Consult Consult date: 05/22/20 medical eval Requesting physician: Italo Kim - History of Present Illness Ghazal Kaur is a 69 yo F who is admitted for L TKA. She is POD#1 today, reports moderate pain with ambulation and is working with PT. She denies chest pain, cough, fever, chills or shortness of breath. No leg swelling. Review of Systems All systems: negative Constitutional: Denies chills, Denies fever Eyes: denies blurred vision, denies pain Ears, nose, mouth and throat: Denies headache, Denies sore throat Cardiovascular: Denies chest pain, Denies shortness of breath Respiratory: Denies cough Gastrointestinal: Denies abdominal pain, Denies diarrhea, Denies nausea, Denies vomiting Genitourinary: Denies dysuria, Denies hematuria Musculoskeletal: Reports as per HPI, Reports muscle weakness, Denies myalgias Integumentary: Denies pruritus, Denies rash Neurological: Denies numbness, Denies weakness Psychiatric: Denies anxiety, Denies depression Endocrine: Denies fatigue, Denies weight change Past Medical History Past Medical History: Cancer, Osteoarthritis (OA) Additional Past Medical History / Comment(s): Hx colon cancer 10 yrs ago. History of Any Multi-Drug Resistant Organisms: None Reported Past Surgical History: Bowel Resection, Joint Replacement, Orthopedic Surgery Additional Past Surgical History / Comment(s): Partial colectomy, facial surgery, right knee surgery, right knee replacement. Past Anesthesia/Blood Transfusion Reactions: No Reported Reaction Past Psychological History: No Psychological Hx Reported Smoking Status: Never smoker Past Alcohol Use History: Occasional Past Drug Use History: None Reported - Past Family History Mother Family Medical History: Cancer Brother(s) Family Medical History: Cancer Medications and Allergies Home Medications Medication Instructions Recorded Confirmed Type Acetylcysteine [Nac] 600 mg PO DAILY 01/10/20 05/21/20 History Cholecalciferol [Vitamin D3 (25 5,000 units PO DAILY 01/10/20 05/16/20 History Mcg = 1000 Iu)] Multivitamins, Thera [Multivitamin 1 tab PO DAILY 01/10/20 05/16/20 History (formulary)] diphenhydrAMINE [Benadryl] 25 mg PO HS PRN 01/10/20 05/21/20 History Wheatgrass Juice 1 dose PO DAILY 05/16/20 05/21/20 History Allergies Allergy/AdvReac Type Severity Reaction Status Date / Time nickel Allergy Rash/Hives Verified 05/21/20 11:07 NSAIDS (Non-Steroidal AdvReac Swelling Verified 05/21/20 11:07 Anti-Inflamma Physical Exam Vitals: Vital Signs Temp Pulse Pulse Resp BP Pulse Ox 05/22/20 19:50 98.5 F 87 20 160/86 96 05/22/20 14:00 98.5 F 90 21 129/75 92 L 05/22/20 08:00 98.5 F 85 18 116/76 96 05/22/20 02:10 97.6 F 71 16 103/67 93 L Intake and Output 05/22/20 05/22/20 05/22/20 06:59 14:59 22:59 Output Total 1 Balance -1 Output: Urine 1 Other: Voiding Method Toilet # Voids 1 2 General: well nourished, well developed, NAD. Vitals reviewed Eyes: PERRL, EOMI, conjunctiva normal HENT: normocephalic, mucus membranes moist Neck: supple, no JVD Lungs: normal respiratory effort, no wheezes or rales CV: Regular rate and rhythm, no murmur. Peripheral pulses 2+ Abdomen: soft, nondistended, no organomegaly Lymph: no cervical or axillary LAD Skin: warm and dry. Neuro: A&Ox3, normal mood and affect Results CBC & Chem 7: 05/22/20 08:24 Labs: Abnormal Lab Results - Last 24 Hours (Table) 05/22/20 Range/Units 08:24 Lymphocytes # 0.9 L (1.0-4.8) k/uL Assessment and Plan (1) Arthritis of left knee Current Visit: Yes Status: Acute Code(s): M17.12 - UNILATERAL PRIMARY O STEOARTHRITIS, LEFT KNEE SNOMED Code(s): 441540042 (2) Allergic rhinitis Current Visit: Yes Status: Acute Code(s): J30.9 - ALLERGIC RHINITIS, UNSPECIFIED SNOMED Code(s): 22321272 Plan: 1. S/p L TKA. Continue current management, encourage IS and early ambulation. She is medically cleared for discharge 2. Allergic rhinitis. Continue NAC and benadryl prn
[2020-05-22] MEDS: SENNOSIDES-DOCUSATE SODIUM 1 EACH TAB PO SCH (21:05)
[2020-05-23] MEDS: HYDROcodone/APAP 5-325MG 1 EACH TAB PO PRN ×2 (04:28→09:58)
[2020-05-23] MEDS: ENOXAPARIN 30 MG/0.3 ML SYRINGE SQ SCH (07:25)
[2020-05-23] MEDS: LACTATED RINGERS 1,000 ML IV SCH (07:25)
[2020-05-23 07:54] VITALS: BP 170/81; PULSE 86; RESP 16; TEMP 99
--- NOTE | 2020-05-23 08:35 | P.PN ---
Subjective Progress Note Date: 05/23/20 Principal diagnosis: Status post left total knee arthroplasty Patient is evaluated at bedside today, she is resting. The pain is better controlled today. She has no headaches, lightheadedness, chest pain, shortness of breath, nausea vomiting. Objective - Vital Signs Vital signs: Vital Signs Temp 99.0 F 05/23/20 07:53 Pulse 86 05/23/20 07:53 Resp 16 05/23/20 07:53 BP 170/81 05/23/20 07:53 Pulse Ox 96 05/23/20 07:53 Intake & Output 05/22/20 05/23/20 05/23/20 18:59 06:59 18:59 Intake Total 950 Output Total 1 Balance 949 Intake: Oral 950 Output: Urine 1 Other: Voiding Method Toilet Toilet # Voids 2 3 - Exam Left lower extremity: Incision is clean, dry, and intact. The foam dressing is in good condition. There is minimal soft tissue swelling and ecchymosis surrounding the medial and lateral aspects of the incision. Calf is soft, no tenderness with palpation. Plantar flexion, dorsiflexion, EHL, FHL are intact. Sensory exam to light touch throughout the extremity is intact, dorsal pedis pulses 2+. - Labs CBC & Chem 7: 05/22/20 08:24 Labs: Abnormal Lab Results - Last 24 Hours (Table) 05/22/20 Range/Units 08:24 Lymphocytes # 0.9 L (1.0-4.8) k/uL Assessment and Plan Assessment: Status post left total knee arthroplasty Plan: Pain control, [place] 7.5 mg/325 mg for dc DVT prophylaxis, Eliquis 2.5mg bid for 15 days Wound care instructions were discussed, icing and elevating techniques discussed Discussed activity level, she needs to be out of bed for all meals. She needs to be utilizing a walker every half hour to hour. Medical recommendations Plan for discharge home today Time with Patient: Less than 30
--- NOTE | 2020-05-23 09:27 | P.DS ---
Providers Date of admission: 05/21/2020 Expected date of discharge: 05/23/20 Attending physician: Italo Kim Consults: 05/21/20 14:15 Consult Physician Routine Consulting Provider: Jose Manuel Morris Reason/Comments: Medical management Do you want consulting provider notified?: Yes Primary care physician: Umm Dutta [facility] Course: Date of admission: 05/21/2020 Date of discharge: 05/23/2020 Admission diagnosis: Status post left total knee arthroplasty Discharge diagnosis: Same Attending physician: Dr. Kim Surgical procedures: Left total knee arthroplasty Brief history: Patient is a 69-year-old female with a history of progressive primary left knee osteoarthritis. At this point patient has failed conservative treatment measures and has opted to proceed with a elective left total knee arthroplasty. Hospital course: Details of patient's surgery can be found in operative report. Patient tolerated the procedure well and was subsequently transported to orthopedic floor. Patient's orthopeidc and medical care was provided daily. Patient had daily laboratory tests performed for evaluation of overall blood counts. Patient had daily physical therapy to include strengthening range of motion as well as education with walker ambulation. Patient was treated with Lovenox for their postoperative DVT prophylaxis during their inpatient stay. Patient was noted to have a relatively uneventful postoperative course. Patient reported satisfactory pain control with oral pain medications by postoperative day 0. Patient showed satisfactory progress with physical therapy. Patient moved steadily through the program and had no difficulty meeting the goals by postoperative day 2. Given patient's otherwise satisfactory course and having met physical therapy goals, plan is to discharge patient home on postoperative day 2. Discharge condition/disposition: Patient will be discharged home in stable condition. Discharge medications: Instructions are given on resumption of patient's normal daily medications per primary care recommendation, in addition patient will be prescribed [place] 7.5 mg/325 mg, Colace 100 mg, Eliquis 2.5 mg Discharge instructions: 1. Wound care and infection precautions, keep incision dry and covered while showering, no lotions, creams, moisturizers. No soaking, tubs, pools, hottubs. Do not scrub over the incision. Okay to remove home dressing on 05/31/2000 and 2. Weight-bear as tolerated with walker / cane until follow-up. 3. Ice and elevate when necessary. Do not exceed 20 minutes per hour with ice pack. 4. Utilize compression sleeve until seen at first follow up appointment. 5. Visiting nursing care. 6. Home physical therapy including home CPM. 7. Pain meds and anticoagulants per prescription. 8. Pain medication has potential to cause constipation. Increase oral fluid and fiber intake. Contact primary care provider if you have not had a bowel movement within 48 hours after discharge 9. No anti-inflammatory medication until discussed at first post operative visit, this including Motrin, Aleve, Mobic, Diclofenac. 10. Follow up in office at 2 weeks postop with Emanuel Garcia PA-C 11. Follow up with your primary care doctor 7-10 days after discharge. 12. Contact [facility] with any questions, . Procedures: Left total knee arthroplasty Patient Condition at Discharge: Good Plan - Discharge Summary Discharge Rx Participant: Yes New Discharge Prescriptions: New Docusate [Colace] 100 mg PO DAILY #30 capsule Apixaban [Eliquis] 2.5 mg PO BID #30 tab HYDROcodone/APAP 7.5-325MG [[place]er 7.5] 1 - 2 each PO Q6HR PRN #42 tab PRN Reason: Pain No Action diphenhydrAMINE [Benadryl] 25 mg PO HS PRN PRN Reason: Insomnia Multivitamins, Thera [Multivitamin (formulary)] 1 tab PO DAILY Cholecalciferol [Vitamin D3 (25 Mcg = 1000 Iu)] 5,000 units PO DAILY Acetylcysteine [Nac] 600 mg PO DAILY [place] Juice 1 dose PO DAILY Discharge Medication List Acetylcysteine [Nac] 600 mg PO DAILY 01/10/20 [History] Cholecalciferol [Vitamin D3 (25 Mcg = 1000 Iu)] 5,000 units PO DAILY 01/10/20 [History] Multivitamins, Thera [Multivitamin (formulary)] 1 tab PO DAILY 01/10/20 [History] diphenhydrAMINE [Benadryl] 25 mg PO HS PRN 01/10/20 [History] [place] Juice 1 dose PO DAILY 05/16/20 [History] Apixaban [Eliquis] 2.5 mg PO BID #30 tab 05/23/20 [Rx] Docusate [Colace] 100 mg PO DAILY #30 capsule 05/23/20 [Rx] HYDROcodone/APAP 7.5-325MG [[place] 7.5] 1 - 2 each PO Q6HR PRN #42 tab 05/23/20 [Rx] Follow up Appointment(s)/Referral(s): [facility] [NON-STAFF] - As Needed (Continuous Passive Motion knee machine.) [facility], [NON-STAFF] - As Needed Maldonado Garcia, PAC [PHYSICIAN SOLUTIONS CONSULTANT] - 06/08/20 3:00 pm Activity/Diet/Wound Care/Special Instructions: Orthopedic Discharge Instructions: 1. Wound care and infection precautions, keep incision dry and covered while showering, no lotions, creams, moisturizers. No soaking, pools, hot tubs. Do not scrub over incision. Okay to remove foam dressing on 05/31/2020 2. Weight-bear as tolerated with walker / cane until follow-up. 3. Ice and elevate when necessary. Do not exceed 20 minutes per hour with ice pack. 4. Utilize compression sleeve until seen at first follow up appointment. 5. Pain meds and anticoagulants per prescription. 6. Pain medication has potential to cause constipation. Increase oral fluid and fiber intake. Contact primary care provider if you have not had a bowel movement within 48 hours after discharge. 7. No anti-inflammatory medication until discussed at first post operative visit, this including Motrin, Aleve, Mobic, Diclofenac. 8. Follow up in office at 2 weeks postop with Emanuel Garcia PA-C 9. Follow up with your primary care doctor 7-10 days after discharge. 10. Contact [facility] with any questions, . Discharge Disposition: HOME WITH HOME HEALTH SERVICES
== END 2020-05-23 10:11 | disposition home health service (06) ==
LOC: OR 10:48 → 4SSUR 14:24 → OR 05-23 10:11
PROVIDERS: ATTEND Orthopaedic Surgery
DX: M17.12 Unilateral primary osteoarthritis, left knee (principal); J30.9 Allergic rhinitis, unspecified; K21.9 Gastro-esophageal reflux disease without esophagitis; Z96.651 Presence of right artificial knee joint; Z98.890 Other specified postprocedural states; Z88.6 Allergy status to analgesic agent; Z91.048 Other nonmedicinal substance allergy status; Z85.038 Personal history of other malignant neoplasm of large intestine; Z90.49 Acquired absence of other specified parts of digestive tract; Z80.9 Family history of malignant neoplasm, unspecified; Z79.899 Other long term (current) drug therapy
CPT/HCPCS: 97110; 97161; 64448; 76942; 85025; 88300; 73560; 27447; C1776; C1713; J2250; J1200; J1100; J0690 ×3; J2405; J3010; J1650 ×2; J2704; J1170 ×2; J2795

== ENCOUNTER 2020-08-20 08:56 | Day surgery (SDC) | payer BC, MEDICARE ==
[2020-08-15 14:24] VITALS: BMI 30.1
[~2020-08-20 08:56] MED LIST changes: -ACETAMINOPHEN TAB 500 MG TAB PO PRN; -DEXAMETHASONE SOD PHOSPHATE 4 MG/ML 1 ML VIAL IV ONE; -MIDAZOLAM 2 MG/2 ML VIAL IV PRN; -ONDANSETRON 4 MG/2 ML VIAL IVP ONE; -TRANEXAMIC ACID 1,000 MG in SODIUM CHLORIDE 0.9% 100 ML IVPB PRN
[2020-08-20] MEDS ORDERED: LIDOCAINE 1% (10MG/ML) FOR IV START INTRADERMA ONE (10:03)
[2020-08-20 10:05] VITALS: RESP 16; TEMP 97.4
[2020-08-20] MEDS ORDERED: PROPOFOL 10 MG/ML 20 ML VIAL IV ONE (10:07)
[2020-08-20 10:43] VITALS: BP 126/77
--- NOTE | 2020-08-20 10:43 | P.PCN ---
Date of Procedure: 08/20/20 Description of Procedure: BRIEF HISTORY: Patient is a 69-year-old female presenting for outpatient colonoscopy for evaluation of personal history of colon cancer. Colon cancer 10 years ago treated with partial colectomy. No radiation or chemotherapy at that time. She has undergone colonoscopies since that time with the last in 2018. PROCEDURE PERFORMED: Colonoscopy with polypectomy. PREOPERATIVE DIAGNOSIS: Personal history of colon cancer, last colonoscopy in 2018. ESTIMATED BLOOD LOSS: Minimal. IV sedation per Anesthesia. PROCEDURE: After informed consent was obtained, the patient, was brought into the endoscopy unit. IV sedation was administered by Anesthesia under continuous monitoring. Digital rectal examination was normal. Initially the Olympus CF-190 flexible video colonoscope was then inserted in the rectum, gradually advanced into the cecum without any difficulty. Careful examination was performed as the scope was gradually being withdrawn. Ileocecal valve and the appendiceal orifice were visualized and appeared normal. Prep was excellent. Mucosa of the cecum, ascending colon, transverse colon, descending colon, sigmoid colon, and rectum appeared normal. A flat 4 mm IC valve polyp was removed with cold snare polypectomy. Multiple small mouth diverticula in the left colon. Intact anastomotic site in the rectum. Retroflexion was performed in the rectum and no lesions were seen. The patient tolerated the procedure well. IMPRESSION: Flat ileocecal valve polyp removed with cold snare polypectomy. Mild left colonic diverticulosis. Prior partial colectomy with intact anastomotic site in the rectum. RECOMMENDATIONS: Findings of this examination were discussed with the patient and her family. Okay to resume diet. Okay to resume medications. Await pathology from polypectomy. Recommend repeat colonoscopy in 3 years for personal history of c olon cancer.
[2020-08-20 10:44] VITALS: PULSE 71
== END 2020-08-20 11:15 | disposition home or self-care (01) ==
LOC: ORWHC2ENDO 08:56
PROVIDERS: ATTEND Internal Medicine
DX: Z12.11 Encounter for screening for malignant neoplasm of colon (principal); D12.0 Benign neoplasm of cecum; K57.30 Diverticulosis of large intestine without perforation or abscess without bleeding; Z85.038 Personal history of other malignant neoplasm of large intestine; Z90.49 Acquired absence of other specified parts of digestive tract
CPT/HCPCS: 88305; 45385; J2704

== ENCOUNTER → 2021-11-15 | Outpatient (CLI) | payer BC ==
[2021-11-15 10:46] LABS: HGB 13.7 g/dL (12.0-15.0); MCH 28.4 pg (27.0-32.0); MCHC 31.9 g/dL (32.0-37.0); MCV 89.2 fL (80.0-97.0); Mean Platelet Volume 11.7 fL (9.5-12.2); NRBC Per 100 WBC 0 /100 WBCS (0.0-0.0); Platelet Count 210 X 10*3/uL (140-440); RBC 4.82 X 10*6/uL (4.10-5.20); RDW 14.6 % (11.5-14.5); WBC 4.76 X 10*3/uL (4.50-10.00)
[2021-11-15 11:11] LABS: ALT 17 U/L (8-44); AST 15 U/L (13-35); African American GFR (CKD) 84.6 (60.0-200.0); Albumin/Globulin Ratio 1.91 (1.60-3.17); Alkaline Phosphatase 65 U/L (41-126); BUN/Creat Ratio 23.67 Ratio (12.00-20.00); Blood Urea Nitrogen 19.2 mg/dL (9.0-27.0); Carbon Dioxide 25.2 mmol/L (20.0-27.5); Chloride 104 mmol/L (96-109); Chol/HDL Ratio 3.08 Ratio; Globulin 2.1 g/dL (1.6-3.3); Glucose 192 mg/dL (70-110); LDL Cholesterol,Calculated 141.9 mg/dL (0.0-131.0); Magnesium 2.1 mg/dL (1.5-2.4); Potassium 4.4 mmol/L (3.5-5.5); Sodium 140 mmol/L (135-145); Total Protein 6.1 g/dL (6.2-8.2); VLDL Calculation 16.08 mg/dL (5.00-40.00)
== END | disposition home or self-care (01) ==
LOC: LABWHC1 07:37
PROVIDERS: ATTEND Family Medicine
DX: R00.2 Palpitations (principal)
CPT/HCPCS: 36415; 80053; 80061; 83735; 84443; 84481; 85027

== ENCOUNTER → 2021-11-16 | Outpatient (CLI) | payer BC ==
[2021-11-16 11:50] LABS: Chol/HDL Ratio 3.15 Ratio; LDL Cholesterol,Calculated 143.5 mg/dL (0.0-131.0); VLDL Calculation 12.22 mg/dL (5.00-40.00)
== END | disposition home or self-care (01) ==
LOC: LABWHC1 08:21
PROVIDERS: ATTEND Family Medicine
DX: R00.2 Palpitations (principal)
CPT/HCPCS: 36415; 80061

== ENCOUNTER → 2021-12-18 | Outpatient (CLI) | payer MEDICARE ==
--- NOTE | 2021-12-18 10:51 | CA ---
Exercise Stress Test Report Name: Ghazal Kaur Exam Date: 12/18/2021 08:51 Exam Location: [place] Stress Ht (in): 63 Wt (lb): 175 BSA: 1.83 Ordering Phys: Umm Dutta MD Referring Phys: ,, Technologist: Bobby Granados Age: 71 Gender: F : 1950 Procedure CPT: Indications: R07.9 CHEST PAIN ICD-10 Codes: Patient History: Chest Pain Medications: Meds past 24 hrs: Pretest Chest Pain: STRESS TEST Get Protocol Exercise Duration (min:sec): 08:[address] Depressions (mm): Angina Score: Abdullahi Score: Resting HR (bpm): 73 Peak HR (bpm): 162 Resting BP (mmHg): 140 / 84 Peak BP (mmHg): 210 / 87 MPHR: 149 Target HR: 127 % MPHR: 109 METS: 10.3 Total Dose: Peak Dose: Atropine: Double Product: 77197 BP Response: Stress Termination: Reached target heart rate Stress Symptoms: No chest pain or symptoms Stress Summary: ECG ANALYSIS Resting ECG: Stress ECG: CONCLUSIONS Patient underwent exercise stress EKG with a Get protocol treadmill stress test. Patient exercised into Stage 2 for a total of 8 minutes reaching a total of 10.3 METS. Patient's maximum heart rate was 162 which represented 108 % age-predicted maximum heart rate. Stress EKG findings: At baseline patient's EKG showed normal sinus rhythm, normal axis, no significant ST or T wave abnormalities. At peak exercise, EKG showed equivocal 1.[address] depressions in the inferior lateral leads. Conclusions: 1. Equivocal stress EKG with 1.[address] depressions in the inferior lateral leads. Consider stress testing with imaging modality if clinically indicated. 2. Good exercise capacity. Dr. Arun Parker DO (Electronically Signed) Final Date: 18 December 2021 10:50
== END | disposition home or self-care (01) ==
LOC: RADNMMAIN 08:28
PROVIDERS: ATTEND Family Medicine
DX: R94.31 Abnormal electrocardiogram [ECG] [EKG] (principal)
CPT/HCPCS: 93017

== ENCOUNTER → 2022-01-30 | Outpatient (CLI) | payer MEDICARE ==
--- NOTE | 2022-01-30 11:33 | NM ---
EXAMINATION TYPE: NM stress cardiolite complete DATE OF EXAM: 01/30/2022 COMPARISON: NONE HISTORY: Chest pain TECHNIQUE: After the intravenous administration of 9.9 mCi Tc 99m Sestamibi - Rest images obtained 4 5 minutes post injection. The patient exercised using a WILMAR protocol and 1 minute prior to peak e xercise was injected with 24.4 mCi Tc 99m Sestamibi - Stress images obtained 25 minutes post injectio n. FINDINGS: Targeted heart rate was achieved during performance of the study. Review of stress and rest SPECT jeremiah ges demonstrates no distinct perfusion abnormality. Gated analysis shows normal wall motion with an estimated left ventricular ejection fraction of 56 %. IMPRESSION: No scintigraphic evidence for reversible ischemia
== END | disposition home or self-care (01) ==
LOC: RADNMMAIN 07:57
PROVIDERS: ATTEND Family Medicine
DX: I51.9 Heart disease, unspecified (principal); R94.39 Abnormal result of other cardiovascular function study
CPT/HCPCS: 93017; 78452; A9500

== ENCOUNTER 2022-02-14 13:04 | Emergency (ER) | payer MEDICARE ==
[2022-02-14 13:15] VITALS: BP 142/86; PULSE 16; RESP 20; TEMP 97.6
[2022-02-14] MEDS ORDERED: LIDOCAINE 1% INJ 10MG/ML (20 ML MDV) SQ ONE (13:49)
--- NOTE | 2022-02-14 14:04 | ED ---
Wound/Laceration HPI - General Chief Complaint: Wound/Laceration Stated Complaint: facial injury, lip injury Time Seen by Provider: 02/14/22 13:20 Source: patient, RN notes reviewed Mode of arrival: ambulatory Limitations: no limitations - History of Present Illness Initial Comments: This is a 71-year-old female who presents to the emergency department for a laceration to the upper lip. She hit herself in the face with a pickle ball paddle by accident. Denies any loss of consciousness. Pain is well controlled. Her tetanus status is up-to-date. Denies any fevers, chills, sore throat, cough, dyspnea, chest pain, palpitations, abdominal pain, nausea, vomiting, diarrhea, back pain, or headaches. Location: other (lip) Patient Tetanus UTD: Yes Context: accidental - Related Data Home Medications Medication Instructions Recorded Confirmed Acetylcysteine [Nac] 600 mg PO DAILY 01/10/20 08/15/20 Cholecalciferol [Vitamin D3 (25 5,000 units PO DAILY 01/10/20 08/15/20 Mcg = 1000 Iu)] Multivitamins, Thera [Multivitamin 1 tab PO DAILY 01/10/20 08/15/20 (formulary)] diphenhydrAMINE [Benadryl] 25 mg PO HS PRN 01/10/20 08/15/20 [place] Juice 1 dose PO DAILY 05/16/20 08/15/20 Acetaminophen [Tylenol] 325 mg PO DAILY 08/15/20 08/15/20 Allergies Allergy/AdvReac Type Severity Reaction Status Date / Time nickel Allergy Rash/Hives Verified 02/14/22 13:15 NSAIDS (Non-Steroidal AdvReac Swelling Verified 02/14/22 13:15 Anti-Inflamma Review of Systems ROS Statement: Those systems with pertinent positive or pertinent negative responses have been documented in the HPI. ROS Other: All systems not noted in ROS Statement are negative. Past Medical History Past Medical History: Cancer Additional Past Medical History / Comment(s): colon cancer. partial colectomy History of Any Multi-Drug Resistant Organisms: None Reported Past Surgical History: Joint Replacement Additional Past Surgical History / Comment(s): colectomy, willow knee replacement Past Anesthesia/Blood Transfusion Reactions: No Reported Reaction Past Psychological History: No Psychological Hx Reported Smoking Status: Never smoker General Exam Limitations: no limitations General appearance: alert, in no apparent distress Head exam: Present: atraumatic, normocephalic, normal inspection Respiratory exam: Present: normal lung sounds bilaterally. Absent: respiratory distress, wheezes, rales, rhonchi, stridor Cardiovascular Exam: Present: regular rate, normal rhythm, normal heart sounds. Absent: systolic murmur, diastolic murmur, rubs, gallop, clicks Neurological exam: Present: alert, oriented X3, CN II-XII intact Psychiatric exam: Present: normal affect, normal mood Skin exam: Present: other (3 cm jagged laceration to the right side of the upper lip. This does pass the vermilion border. There is no penetration through to the other side.) Course Vital Signs 02/14/22 13:11 Temperature 97.6 F Pulse Rate 16 L Respiratory 20 Rate Blood Pressure 142/86 O2 Sat by Pulse 99 Oximetry Procedures - Laceration Laceration #1 Consent Obtained: verbal consent Indication: laceration Site: lip Size (cm): 3 Description: stellate Depth: simple, single layer Anesthetic Used: lidocaine 1% Anesthesia Technique: local infiltration Amount (mls): 2 Type of Sutures: vicryl Size of Sutures: 5-0 Number of Sutures: 4 Technique: simple, interrupted Medical Decision Making - Medical Decision Making This is a 71-year-old female who presents to the emergency department for a laceration to the upper lip. This was repaired with absorbable sutures. Patient's tetanus status is up-to-date. Advised ibuprofen and Tylenol as needed for pain relief. Return precautions reviewed in depth, the patient is instructed to return to the emergency department with any new, worsening, or concerning symptoms. Patient verbalized understanding. This case was discussed in detail with the attending ED physician. Presentation, findings, and treatment plan discussed in detail as well. Disposition Clinical Impression: Lip laceration Disposition: HOME SELF-CARE Instructions (If sedation given, give patient instructions): Care For Your Absorbable Stitches (ED) Additional Instructions: Return to the emergency department with any new, worsening, or concerning symptoms. Alternate with Ibuprofen and Tylenol as needed for pain relief. Is patient prescribed a controlled substance at d/c from ED?: No Referrals: Umm Dutta MD [Primary Care Provider] - 1-2 days
== END 2022-02-14 14:10 | disposition home or self-care (01) ==
LOC: EC 13:04
DX: S01.511A Laceration without foreign body of lip, initial encounter (principal); Z91.048 Other nonmedicinal substance allergy status; Z88.6 Allergy status to analgesic agent; W21.89XA Striking against or struck by other sports equipment, initial encounter
CPT/HCPCS: 99282; 12013; J2001

== ENCOUNTER → 2024-04-20 | Outpatient (CLI) | payer MEDICARE ==
[2024-04-20 14:11] VITALS: BP 137/86; PULSE 72; RESP 16; TEMP 97.6
--- NOTE | 2024-04-20 14:45 | P.SLEEP ---
History of Present Illness DATE: 04/20/2024 CONSULTATION/NEW PATIENT EVALUATION HISTORY OF PRESENT ILLNESS/SLEEP-WAKE EVALUATION: 73-year-old lady had been evaluated in the sleep center for possible obstructive sleep apnea hypopnea syndrome and difficulties to initiate sleep. SLEEP SCHEDULE: Usually sleep schedule from 11 PM to 46 AM. FALLING ASLEEP: Patient usually goes to bed around 9 PM and has difficulties with falling asleep until 11 PM. DURING SLEEP: Patient has occasional snoring and wakes up from sleep 3 times with nocturia and necessity for bowel movements. Positive history of cramps in the legs, improved after additional calcium supplement. No history of hypnogogical hallucinations, sleep paralysis, or cataplexy. DURING THE DAY/WAKE STATE: During the day patient has difficulties to pay attention, has problems with memory, concentration.. [place] sleepiness scale is 5. Patient does not take naps. PAST MEDICAL HISTORY: Colon cancer, allergy. PAST SURGICAL HISTORY: Resection of part of colon and rectum for treatment of cancer, bilateral knee replacement. MEDICATIONS: None at the present time. SOCIAL HISTORY: Please see below. FAMILY HISTORY: Please see below. REVIEW OF SYSTEMS: Difficulties to initiate sleep, multiple awakenings from sleep. No fevers. No double vision. No recent chest pain. No shortness of breath. No abdominal pain. No bleeding episodes. No blood in urine. No seizure episodes. PHYSICAL EXAMINATION: GENERAL: A pleasant patient without any distress. VITAL SIGNS: Please see below, weight 160.4 pounds, BMI 31.0. HEENT: PERRLA, EOMI. Evaluation of oropharynx showed tongue protrudes midline, low position of soft palate Mallampati 3. NECK: Supple. No JVD. Thyroid is not palpable. 14.75 inches in circumference. LUNGS: Clear to percussion and to auscultation. Good air exchange. No wheezing or rhonchi. HEART: S1, S2 regular. No murmurs, gallops or rubs. ABDOMEN: Soft and nontender. Bowel sounds are present. No organomegaly appreciated. EXTREMITIES: No clubbing or cyanosis. CYLINDER GRINDER: Awake, alert, and oriented x3. Cranial nerves 2 to 7 intact. There is no fasciculation or atrophy noted. No focal deficits observed. ASSESSMENT: 1. Multiple awakenings from sleep, occasional snoring, small oropharyngeal airspace. Possible obstructive sleep apnea hypopnea syndrome. 2. Psychophysiological insomnia. 3. Mild obesity, BMI 31.0. 4. History of leg cramps, improved on calcium supplement. 5 history of prediabetes. 6 . Status bilateral knee replacement. 7. History of colon cancer treated by resection of the colon and partial rectum. 8. Allergy. PLAN: 1. Polysomnography for evaluation of patient's breathing during sleep. 2. Following plan after reading sleep study. 3. Preferable position during sleep on the side. 4. No driving if patient feels any sleepiness. Patient is aware of civil and criminal liability for unsafe driving. 5. Sleep hygiene with regular sleep time for at least 7.5-8 hours. 6. Watching weight. 7. I discussed with patient psychological techniques for treatment of insomnia including stimulus control, paradoxical intention, not watching clock. Thank you very much for referring this patient for consultation. Sincerely, Luis Kapoor MD, PhD, FAASM. Diplomat of [place] [employer], Sleep Medicine Board by [place] [employer] [place] [employer] Consultant [facility] [place] cc: Danilo Marin MD, Jose Manuel Morris MD Past Medical History Past Medical History: Cancer Additional Past Medical History / Comment(s): colon cancer. partial colectomy, pre diabetic, skin cancer (basal cell) - face, arthritis, recently dx with osteoporosis History of Any Multi-Drug Resistant Organisms: None Reported Past Surgical History: Joint Replacement Additional Past Surgical History / Comment(s): colectomy, willow knee replacement Past Anesthesia/Blood Transfusion Reactions: No Reported Reaction Past Psychological History: No Psychological Hx Reported Smoking Status: Never smoker Past Alcohol Use History: Occasional Past Drug Use History: None Reported - Past Family History Father Family Medical History: Diabetes Mellitus Additional Family Medical History / Comment(s): Snoring, (brothers = arthritis, diabetes and non - hodgkins and pancreatic cancer) Mother Family Medical History: Cancer Additional Family Medical History / Comment(s): Breast cancer, depression. Medications and Allergies Home Medications Medication Instructions Recorded Confirmed Type Acetylcysteine [Nac] 600 mg PO DAILY 01/10/20 08/15/20 History Cholecalciferol [Vitamin D3 (25 5,000 units PO DAILY 01/10/20 08/15/20 History Mcg = 1000 Iu)] Multivitamins, Thera [Multivitamin 1 tab PO DAILY 01/10/20 08/15/20 History (formulary)] diphenhydrAMINE [Benadryl] 25 mg PO HS PRN 01/10/20 08/15/20 History Wheatgrass Juice 1 dose PO DAILY 05/16/20 08/15/20 History Acetaminophen [Tylenol] 325 mg PO DAILY 08/15/20 08/15/20 History Allergies Allergy/AdvReac Type Severity Reaction Status Date / Time nickel Allergy Rash/Hives Verified 02/14/22 13:15 NSAIDS (Non-Steroidal AdvReac Swelling Verified 02/14/22 13:15 Anti-Inflamma Physical Exam Vitals: Vital Signs Temp Pulse Resp BP Pulse Ox 04/20/24 14:08 97.6 F 72 16 137/86 98 Intake and Output 04/19/24 04/20/24 04/20/24 22:59 06:59 14:59 Other: Weight 72.688 kg Sleep Note - Sleep Data ESS Total: 5 - Sleep Note Sleep Note: Temperature: 97.6 F Pulse Rate: 72 Respiratory Rate: 16 Blood Pressure: 137/86 SpO2: 98 Height: 5 ft 2 in Weight: 72.688 kg BMI: Neck Circumference: 14.7
== END ==
LOC: 3 N SLEEP 13:49
PROVIDERS: ATTEND Internal Medicine
DX: R06.83 Snoring (principal); F51.04 Psychophysiologic insomnia; E66.9 Obesity, unspecified; R73.03 Prediabetes; Z96.653 Presence of artificial knee joint, bilateral; Z85.038 Personal history of other malignant neoplasm of large intestine; Z87.39 Personal history of other diseases of the musculoskeletal system and connective tissue; Z68.31 Body mass index [BMI] 31.0-31.9, adult; Z88.8 Allergy status to other drugs, medicaments and biological substances; Z91.09 Other allergy status, other than to drugs and biological substances
CPT/HCPCS: 99211

== ENCOUNTER 2024-05-09 19:41 | Outpatient (CLI) | payer MEDICARE ==
--- NOTE | 2024-05-11 15:31 | P.PCN ---
Description of Procedure: POLYSOMNOGRAPHY REPORT PROCEDURE(S)/DATE(S): Polysomnography 05/09/2024 CLINICAL: Patient has been seen in the sleep center for evaluation of obstructive sleep apnea-hypopnea syndrome. Please see my consultation. Sleep study has been done for evaluation of patient breathing during the sleep. PROCEDURE: The standard montage for clinical polysomnography included the electroencephalogram, the electrooculogram, the mentalis surface electromyography and Lead II cardiography. The respiratory battery consisted of measurements of nasal/buccal air flow, pressure transducer measurements from nose, thoracic and/or abdominal effort and intercostal surface electromyography. Video monitoring has been done to check for any parasomnia events. Nocturnal oxyhemoglobin saturations were obtained by finger oximetry. Step-talley titration with positive airway pressure was utilized to control the respiratory events, if necessary. RESULTS: During the diagnostic sleep study sleep efficiency was slightly decreased to 80.5%. Latency to sleep onset was practically normal 9.5 min. Sleep architecture showed stage NI was normal 5.1%, Delta sleep was normal 16.7%, REM sleep was normal 27.1 %. Respiratory channel showed 27 obstructive apneas, 0 mixed apneas, 3 central apneas, 11 hypopneas with lowest oxygen level 84%. Total apnea hypopnea index was 7.4. Heart rate was in the range between 61 and 70, average 65. EMG showed 0 periodic limb movements per hour. IMPRESSIONS: 1. Obstructive sleep apnea hypopnea syndrome in mild range. 2. No significant periodic limb movements have been documented. 3. History of insomnia Please see other impressions from consultation PLAN: 1. Patient will be started on treatment with AutoPap and should use equipment every night for the whole night. 2. Watching weight program. 3. Sleep hygiene with regular time in bed for at least 7-1/2 hours. 4. No driving if feeling sleepiness. 5. I will see patient for follow-up visit to evaluate clinical response on treatment, compliance with treatment and [place] adjustments related to mask fitting pressure and humidification Thank you very much for allowing me to participate in the management of your patient. Sincerely, Luis Kapoor MD, PhD, FAASM. Diplomat of [place] [employer], Sleep Medicine Board by [employer] Office Support of [facility] [place] cc: Jose Manuel Morris DO
== END 2024-05-10 05:07 | disposition home or self-care (01) ==
LOC: 3 N SLEEP 19:41
PROVIDERS: ATTEND Internal Medicine
DX: G47.33 Obstructive sleep apnea (adult) (pediatric) (principal); Z91.048 Other nonmedicinal substance allergy status; Z88.6 Allergy status to analgesic agent
CPT/HCPCS: 95810

== ENCOUNTER → 2024-07-01 | Outpatient (CLI) | payer MEDICARE | END | disposition home or self-care (01) | LOC: LABWHC1 14:54 | PROVIDERS: ATTEND Otolaryngology | DX: J30.89 Other allergic rhinitis (principal) | CPT/HCPCS: 36415 ==